=== PATIENT | female | born 2000 | race African-American/Black ===

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

== ENCOUNTER → 2022-09-09 | Outpatient (CLI) | payer MEDICAID ==
[~2022-09-09] MED LIST: POLY10DR OP
--- NOTE | 2022-09-09 13:38 | Diagnostic Imaging Report ---
INDICATION: Fundal height and date discrepancy. TECHNIQUE: Multiple real-time grayscale images were obtained over the gravid uterus. COMPARISON: None FINDINGS: There is a single live fetus in a cephalic presentation. Heart rate was recorded at 161 BPM. Placenta is posterior. Amniotic fluid volume is 10.2 cm. Cervical length is 3.9 cm. Biophysical profile score is normal at 8/8. Biometrical measurements are as follows: Biparietal 7.20 cm, age 29 weeks 0 days. Head circumference 28.00 cm, age 30 weeks 5 days. Abdominal circumference 23.13 cm, age 27 weeks 4 days. Femur length 5.74 cm, age 30 weeks 1 days. Sonographic estimate age: 29 weeks 3 days. Sonographic estimated date of delivery: 11/22/2022. Estimated Weight: 1281 gm (+/- 187 gm). LMP percentile: 50%. heart rate: 161 beats per minute. number: 1 of 1. IMPRESSION: 1. Single live IUP of 29-30 weeks gestational age with estimated date of confinement sonographically of 11/22/2022. 2. Biophysical profile score normal at 8/8. Dictated by: Dictated on workstation # [id number]
== END ==
LOC: RAD 12:00
PROVIDERS: ATTEND Obstetrics & Gynecology
DX: O34.593 Maternal care for other abnormalities of gravid uterus, third trimester (principal); Z3A.29 29 weeks gestation of pregnancy
CPT/HCPCS: 76805; 76819

== ENCOUNTER 2022-09-13 19:00 | Outpatient (CLI) | payer MEDICAID ==
[~2022-09-13] VITALS: Ht 162.5 cm; Wt 106.8 kg
[2022-09-13 19:23] LABS: BILIRUBIN,URINE NEGATIVE (NEGATIVE); CLARITY,URINE SL CLOUDY; COLOR,URINE YELLOW; GLUCOSE, URINE (UA) NEGATIVE (NEGATIVE); KETONES,URINE NEGATIVE (NEGATIVE); LEUKOCYTE ESTERASE ,URINE NEGATIVE (NEGATIVE); NITRITE,URINE NEGATIVE (NEGATIVE); PROTEIN,URINE NEGATIVE (NEGATIVE)
[2022-09-13 19:35] VITALS: BP 129/71
[2022-09-13 19:39] LABS: BACTERIA,URINE NEGATIVE /HPF; SQUAMOUS EPITHELIAL CELL,UR 0-2 /HPF
[2022-09-13] MEDS ORDERED: D5 LR IV SOLUTION 1,000 ML IV SCH (19:45)
[2022-09-13] MEDS ORDERED: D5 LR IV SOLUTION 1,000 ML IV ONE (19:46)
--- NOTE | 2022-09-14 08:38 | Physician Query-Final Dx ---
LAYNE,09/14/22 0838: Clinic Account Progress/Dx Physician Query: Please give diagnosis Please include # weeks gestation Date of Service Sep 13, 2022 at 19:00 ANOOP LEUNG MD 09/15/22 1403: Clinic Account Progress/Dx DIAGNOSIS: Diagnosis False labor at 30 weeks gestation LAYNE,SepSep 14, 2022 08:38 ANOOP LEUNG MD Sep 15, 2022 14:03
== END 2022-09-13 21:18 ==
LOC: WSo 19:00 → LDRP 19:01 → WSo 21:18
PROVIDERS: ATTEND Obstetrics & Gynecology
DX: O62.9 Abnormality of forces of labor, unspecified (principal); Z3A.00 Weeks of gestation of pregnancy not specified
CPT/HCPCS: 81000

== ENCOUNTER 2022-09-29 13:13 | Outpatient (CLI) | payer MEDICAID ==
[~2022-09-29] VITALS: Ht 162.6 cm; Wt 107.1 kg
[2022-09-29 13:46] LABS: BILIRUBIN,URINE NEGATIVE (NEGATIVE); CLARITY,URINE CLEAR; COLOR,URINE YELLOW; GLUCOSE, URINE (UA) NEGATIVE (NEGATIVE); KETONES,URINE TRACE (NEGATIVE); LEUKOCYTE ESTERASE ,URINE NEGATIVE (NEGATIVE); NITRITE,URINE NEGATIVE (NEGATIVE); PROTEIN,URINE NEGATIVE (NEGATIVE)
[2022-09-29 13:57] VITALS: BP 134/83
[2022-09-29 14:02] LABS: AMORPHOUS SEDIMENT,UR RARE AMOR URATES /LPF; BACTERIA,URINE FEW /HPF; RBC,URINE RARE /HPF; WBC,URINE 0-2 /HPF
--- NOTE | 2022-09-30 08:36 | Physician Query-Final Dx ---
LAYNE,09/30/22 0836: Clinic Account Progress/Dx Physician Query: Please give diagnosis Please include # weeks gestation Date of Service Sep 29, 2022 at 13:13 TENNILLE PEREIRA DO 09/30/22 1352: Clinic Account Progress/Dx DIAGNOSIS: Diagnosis 33 week IUP Irregular contractions Dehydration LAYNE,SepSep 30, 2022 08:36 TENNILLE PEREIRA DO Sep 30, 2022 13:52
== END 2022-09-29 14:50 | disposition home or self-care (01) ==
LOC: WSo 13:13 → LDRP 13:13 → WSo 14:50
PROVIDERS: ATTEND Obstetrics & Gynecology
DX: O47.03 False labor before 37 completed weeks of gestation, third trimester (principal); E86.0 Dehydration; M54.89 Other dorsalgia; Z3A.33 33 weeks gestation of pregnancy
CPT/HCPCS: 81000; 87088; 99214

== ENCOUNTER 2022-10-21 22:01 | Outpatient (CLI) | payer MEDICAID ==
[~2022-10-21] VITALS: Ht 162.6 cm; Wt 110.5 kg
[2022-10-21 22:23] VITALS: BP 133/75
[2022-10-21 22:37] VITALS: BP 120/67
[2022-10-21 22:40] LABS: BILIRUBIN,URINE 1+ (NEGATIVE); CLARITY,URINE CLEAR; COLOR,URINE ORANGE; GLUCOSE, URINE (UA) NEGATIVE (NEGATIVE); KETONES,URINE TRACE (NEGATIVE); LEUKOCYTE ESTERASE ,URINE NEGATIVE (NEGATIVE); NITRITE,URINE NEGATIVE (NEGATIVE); PROTEIN,URINE NEGATIVE (NEGATIVE)
[2022-10-21 22:50] VITALS: BP 123/60
[2022-10-21 22:51] LABS: BACTERIA,URINE TRACE /HPF; WBC,URINE RARE /HPF
--- NOTE | 2022-10-22 08:26 | Physician Query-Final Dx ---
LAYNE,10/22/22 0826: Clinic Account Progress/Dx Physician Query: Please give diagnosis Please include # weeks gestation Date of Service Oct 21, 2022 at 22:01 TENNILLE PEREIRA DO 10/23/22 0658: Clinic Account Progress/Dx DIAGNOSIS: Diagnosis 33 week IUP Irregular contractions LAYNE,SepOct 22, 2022 08:26 TENNILLE PEREIRA DO Oct 23, 2022 06:58
== END 2022-10-21 23:10 | disposition home or self-care (01) ==
LOC: WSo 22:01 → LDRP 22:01 → WSo 23:10
PROVIDERS: ATTEND Obstetrics & Gynecology
DX: O47.03 False labor before 37 completed weeks of gestation, third trimester (principal); Z3A.33 33 weeks gestation of pregnancy
CPT/HCPCS: 81000; 99212

== ENCOUNTER 2022-11-22 19:57 | Outpatient (CLI) | payer MEDICAID ==
[~2022-11-22] VITALS: Ht 162.6 cm; Wt 111.7 kg
[2022-11-22 20:20] VITALS: BP 123/81
[2022-11-22] MEDS ORDERED: ACETAMINOPHEN 500 MG TAB (TYLENOL) ONE (20:37)
[2022-11-22] MEDS ORDERED: ACETAMINOPHEN 500 MG TAB (TYLENOL) PO ONE (20:45)
[2022-11-22 20:53] VITALS: BP_SYST 121; BP_SYST 131; BP_DIAS 82; BP_DIAS 95
[2022-11-22 20:56] VITALS: BP 123/81
[2022-11-22 21:24] VITALS: BP 130/80
[2022-11-22 21:33] LABS: BILIRUBIN,URINE NEGATIVE (NEGATIVE); CLARITY,URINE CLEAR; COLOR,URINE YELLOW; GLUCOSE, URINE (UA) NEGATIVE (NEGATIVE); KETONES,URINE TRACE (NEGATIVE); LEUKOCYTE ESTERASE ,URINE NEGATIVE (NEGATIVE); NITRITE,URINE NEGATIVE (NEGATIVE); PROTEIN,URINE NEGATIVE (NEGATIVE)
[2022-11-22 21:44] VITALS: BP 135/75
[2022-11-22 21:50] LABS: BACTERIA,URINE TRACE /HPF
[2022-11-22] MEDS ORDERED: LACTATED RINGERS 1,000 ML IV SCH (22:00)
--- NOTE | 2022-11-23 10:13 | Physician Query-Final Dx ---
LAYNE,11/23/22 1013: Clinic Account Progress/Dx Physician Query: Please give diagnosis Please include # weeks gestation Date of Service Nov 22, 2022 at 19:57 RAMANA CROWDER MD 12/19/22 1933: Clinic Account Progress/Dx DIAGNOSIS: Diagnosis Third Trimester 39 week gestation abdominal pain in LAYNE,SepNov 23, 2022 10:13 RAMANA CROWDER MD Dec 19, 2022 19:33
== END 2022-11-22 22:40 | disposition other institution (70) ==
LOC: LDRP 19:57 → WSo 19:57
PROVIDERS: ATTEND Family Medicine
DX: O26.893 Other specified pregnancy related conditions, third trimester (principal); R10.9 Unspecified abdominal pain; Z3A.39 39 weeks gestation of pregnancy
CPT/HCPCS: 81000; 96360; 99213